=== PATIENT | female | born 1995 | race Caucasian/White ===

== ENCOUNTER 2016-05-08 11:04 | Emergency (ER) | payer BC ==
[~2016-05-08 11:04] MED LIST: CELEXA10 MG PO; NEIGHBOR PH
[2016-05-08] MEDS ORDERED: AMOXICILLIN 50500 MG PO (11:28)
== END 2016-05-08 11:41 | disposition home or self-care (01) ==
LOC: ED 11:04
DX: J02.0 Streptococcal pharyngitis (principal); F17.210 Nicotine dependence, cigarettes, uncomplicated

== ENCOUNTER 2016-07-02 00:54 | Emergency (ER) | payer BC, MEDICAID ==
[~2016-07-02 00:54] MED LIST changes: +AMOXICILLIN 50500 MG PO
[2016-07-02] MEDS ORDERED: NORCO 325 MG-51 TAB PO (01:45)
[2016-07-02] MEDS ORDERED: AUGMENTIN 875-1 EAC1 PO (01:45)
== END 2016-07-02 02:02 | disposition home or self-care (01) ==
LOC: ED 00:54
DX: H66.92 Otitis media, unspecified, left ear (principal); Z33.1 Pregnant state, incidental

== ENCOUNTER 2018-02-13 19:15 | Emergency (ER) | payer BC, MEDICAID ==
[~2018-02-13] VITALS: Ht 170.2 cm; Wt 100.0 kg
[~2018-02-13 19:15] MED LIST changes: +AUGMENTIN 875-1 EAC1 PO; +NORCO 325 MG-51 TAB PO
[2018-02-13 20:40] VITALS: BP 137/89
== END 2018-02-13 20:40 | disposition home or self-care (01) ==
LOC: ED 19:15
DX: J02.9 Acute pharyngitis, unspecified (principal); Z72.0 Tobacco use
CPT/HCPCS: J1100

== ENCOUNTER 2019-02-16 18:40 | Emergency (ER) | payer BC ==
[~2019-02-16] VITALS: Ht 172.7 cm; Wt 111.4 kg
[2019-02-16] MEDS ORDERED: REMERON15 MG PO (19:21)
[2019-02-16] MEDS ORDERED: LORAZEPAM0.5 M1 PO (19:22)
[2019-02-16] MEDS ORDERED: PHENTERMINE H37.5 M2 PO (19:22)
[2019-02-16 19:47] LABS: EOS % 0.3 % (1.0-5.0); HEMATOCRIT 46.7 % (37.0-47.0); HEMOGLOBIN 15.4 g/dL (12.5-16.0); LYMPH# 1.9 (1.50-4.00); MEAN CELL VOLUME 81 fl (78-100); MEAN CORPUSCULAR HEMOGLOBIN 27 pg (27-31); MEAN CORPUSCULAR HGB CONC 33 g/dL (33-37); MEAN PLATELET VOLUME 10.9 fl (7.4-10.4); MONO # 0.9 (0.20-0.80); PLATELET COUNT 231 K/mm3 (130-400); RED BLOOD COUNT 5.78 M/mm3 (4.10-5.30); RED CELL DISTRIBUTION WIDTH 15.6 % (11.5-14.5); WHITE BLOOD COUNT 11.8 K/mm3 (4.8-10.8)
[2019-02-16] MEDS ORDERED: CEPHALEXIN500 M1 PO (20:58)
[2019-02-16 21:02] VITALS: BP 145/81
== END 2019-02-16 21:02 | disposition home or self-care (01) ==
LOC: ED 18:40
PROVIDERS: Family Medicine
DX: J02.8 Acute pharyngitis due to other specified organisms (principal); F17.210 Nicotine dependence, cigarettes, uncomplicated
CPT/HCPCS: J0696; J1100

== ENCOUNTER → 2024-01-17 | Outpatient (CLI) | payer MEDICAID ==
[~2024-01-17] MED LIST changes: +CEPHALEXIN500 M1 PO; +LORAZEPAM0.5 M1 PO; +PHENTERMINE H37.5 M2 PO; +REMERON15 MG PO
[2024-01-17 15:17] LABS: BASO # 0.04 K/mm3 (0.02-0.10); EOS # 0.07 K/mm3 (0.04-0.40); EOS % 0.8 % (1.0-5.0); HEMATOCRIT 44.3 % (37.0-47.0); HEMOGLOBIN 14.1 g/dL (12.5-16.0); LYMPH# 2.61 K/mm3 (1.50-4.00); MEAN CELL VOLUME 83 fl (78-100); MEAN CORPUSCULAR HEMOGLOBIN 27 pg (27-31); MEAN CORPUSCULAR HGB CONC 32 g/dL (33-37); MEAN PLATELET VOLUME 10.2 fl (7.4-10.4); MONO # 0.38 K/mm3 (0.20-0.80); NEU # 5.62 K/mm3 (1.40-6.50); PLATELET COUNT 238 K/mm3 (130-400); RED BLOOD COUNT 5.32 M/mm3 (4.10-5.30); RED CELL DISTRIBUTION WIDTH 14.9 % (11.5-14.5); WHITE BLOOD COUNT 8.7 K/mm3 (4.8-10.8)
[2024-01-17 15:24] LABS: ALBUMIN 4.4 g/dL (3.5-5.0)
[2024-01-17 15:25] LABS: CALCIUM 9.6 mg/dL (8.3-10.5)
[2024-01-17 15:27] LABS: TOTAL PROTEIN 7.3 g/dL (6.4-8.3)
[2024-01-17 15:28] LABS: TOTAL BILIRUBIN 1.1 mg/dL (0.2-1.2)
== END ==
LOC: LAB 15:05
PROVIDERS: Nurse Practitioner
DX: Z00.00 Encounter for general adult medical examination without abnormal findings (principal); Z13.220 Encounter for screening for lipoid disorders

== ENCOUNTER → 2024-02-21 | Outpatient (CLI) | payer MEDICAID | LOC: LAB 16:21 | DX: R53.83 Other fatigue (principal) ==

== ENCOUNTER → 2024-04-17 | Outpatient (CLI) | payer MEDICAID | LOC: LAB 16:17 | DX: E55.9 Vitamin D deficiency, unspecified (principal) ==

== ENCOUNTER 2024-04-24 14:21 | Emergency (ER) | payer MEDICAID ==
[~2024-04-24] VITALS: Ht 170.2 cm; Wt 96.8 kg
[2024-04-24 14:34] VITALS: BP 128/77
[2024-04-24] MEDS ORDERED: QUETIAPINE FUM150 MG PO (14:39)
== END 2024-04-24 15:05 | disposition home or self-care (01) ==
LOC: ED 14:21
DX: S93.401A Sprain of unspecified ligament of right ankle, initial encounter (principal); X50.1XXA Overexertion from prolonged static or awkward postures, initial encounter